=== PATIENT | female | born 1950 | race Caucasian/White ===

== ENCOUNTER 2018-03-15 18:58 | Inpatient (IN) | payer OTHER ==
[2018-03-15 21:14] LABS: MODE ROOM AIR; MetHgb Venous 0.5 %; Sample Type Blood venous; Site VENOUS LINE; Venous COHb 0.5 %; Venous Fraction OxyHgb 35.2 %; Venous Oxygen Sat 35.6 mmHG (55.0-75.0); Venous Total Hemglobin 13.1 g/dl
[2018-03-15 21:16] LABS: ADD MAN DIFF? NO
[2018-03-15 21:20] LABS: BASOPHILS % 0.6 % (0.0-2.0); EOSINOPHILS % 0.6 % (0.0-7.0); HEMATOCRIT 38.6 % (37.0-47.0); HEMOGLOBIN 11.9 g/dl (12.0-16.0); LYMPHOCYTES # 0.6 10^3/ul (0.8-2.9); LYMPHOCYTES % 11.9 % (15.0-51.0); MEAN CORPUSCULAR HEMOGLOBIN 27.8 pg (29.0-33.0); MEAN CORPUSCULAR HGB CONC 30.8 g/dl (32.0-37.0); MEAN CORPUSCULAR VOLUME 90.2 fl (82.0-101.0); MONOCYTE # 0.6 10^3/ul (0.3-0.9); MONOCYTES % 12.1 % (0.0-11.0); NEUTROPHIL # 3.9 10^3/ul (1.6-7.5); NEUTROPHILS % 74.2 % (39.0-77.0); PLATELET COUNT 279 10^3/UL (140-415); RED BLOOD COUNT 4.28 10^6/ul (4.20-5.40); RED CELL DISTRIBUTION WIDTH 12.8 % (11.5-14.5)
[2018-03-15 21:20] LABS: WHITE BLOOD COUNT 5.2 10^3/ul (4.8-10.8)
[2018-03-15 21:36] LABS: ANION GAP 9 (5-13); BLOOD UREA NITROGEN 24 mg/dl (7-20); CALCIUM 9.2 mg/dl (8.4-10.2); CARBON DIOXIDE 26 mmol/L (21-31); CHLORIDE 101 mmol/L (97-110); CHOLESTEROL 167 mg/dl (100-200); CREATININE 1.65 mg/dl (0.44-1.00); Estimated GFR 31 mL/min (>60); GLUCOSE 282 mg/dl (70-220); HDL CHOLESTEROL 54 mg/dl (35-98); LDL CHOLESTEROL,CALCULATED 80 mg/dl; POTASSIUM 4.1 mmol/L (3.5-5.1); SODIUM 136 mmol/L (135-144); TRIGLYCERIDES 167 mg/dl (0-149)
[2018-03-15 21:37] LABS: HEMOGLOBIN A1C 9.3 % (0-5.9)
[2018-03-15 21:39] LABS: INR 0.95; PROTIME 12.8 Sec (11.9-14.9)
[2018-03-15 21:40] LABS: PARTIAL THROMBOPLASTIN TIME 30.4 Sec (23.0-35.0)
[2018-03-15 21:49] LABS: TROPONIN-I 0.064 ng/ml (0.000-0.120)
[2018-03-15] MEDS ORDERED: ONDANSETRON 4 MG INJ IV ×2 (22:00→22:30)
[2018-03-15] MEDS ORDERED: ACETAMINOPHEN 325 MG TAB PO ×2 (22:00→22:30)
[2018-03-15] MEDS ORDERED: BISACODYL (EC) 5 MG TAB PO (22:30)
[2018-03-15] MEDS ORDERED: NACL 0.9% 3 ML SYG IV (22:30)
[2018-03-15] MEDS ORDERED: DOCUSATE SODIUM 100 MG CAP PO (22:30)
[2018-03-15] MEDS: ASPIRIN 81 MG TAB PO (22:35)
[2018-03-15] MEDS ORDERED: hydrALAzine 20 MG INJ IV (23:30)
[2018-03-15] MEDS: hydrALAzine 20 MG INJ IV (23:35)
[2018-03-16] MEDS: INSULIN GLARGINE [LANtus] 3 ML PEN SC ×2 (01:53→21:11)
[2018-03-16] MEDS ORDERED: DEXTROSE 50% 50 ML SYRINGE IV ×2 (03:30)
[2018-03-16] MEDS ORDERED: GLUCOSE GEL 15 GRAM TUBE PO ×2 (03:30)
[2018-03-16] MEDS ORDERED: GLUCOSE GEL 15 GRAM TUBE BUCCAL (03:30)
[2018-03-16] MEDS ORDERED: GLUCAGON 1 MG INJ IM (03:30)
[2018-03-16] MEDS: ALBUTEROL/IPRATROPIUM (NEB) 3 ML AMP HHN ×3 (04:42→13:00)
[2018-03-16] MEDS: PANTOPRAZOLE (EC) 40 MG TAB PO (05:13)
[2018-03-16 06:17] LABS: ADD MAN DIFF? NO
[2018-03-16 06:20] LABS: BASOPHILS % 0.4 % (0.0-2.0); EOSINOPHILS % 0.6 % (0.0-7.0); HEMATOCRIT 35.6 % (37.0-47.0); HEMOGLOBIN 11.2 g/dl (12.0-16.0); LYMPHOCYTES # 1.2 10^3/ul (0.8-2.9); LYMPHOCYTES % 24.9 % (15.0-51.0); MEAN CORPUSCULAR HEMOGLOBIN 28.4 pg (29.0-33.0); MEAN CORPUSCULAR HGB CONC 31.5 g/dl (32.0-37.0); MEAN CORPUSCULAR VOLUME 90.1 fl (82.0-101.0); MEAN PLATELET VOLUME 9.7 fl (7.4-10.4); MONOCYTE # 0.8 10^3/ul (0.3-0.9); MONOCYTES % 15.6 % (0.0-11.0); NEUTROPHIL # 2.9 10^3/ul (1.6-7.5); NEUTROPHILS % 58.1 % (39.0-77.0); PLATELET COUNT 281 10^3/UL (140-415); RED BLOOD COUNT 3.95 10^6/ul (4.20-5.40); RED CELL DISTRIBUTION WIDTH 12.8 % (11.5-14.5)
[2018-03-16 06:20] LABS: WHITE BLOOD COUNT 4.9 10^3/ul (4.8-10.8)
[2018-03-16 06:41] LABS: ALANINE AMINOTRANSFERASE 24 IU/L (13-69); ALBUMIN 3.2 g/dl (3.3-4.9); ALBUMIN/GLOBULIN RATIO 1.03; ALKALINE PHOSPHATASE 92 IU/L (42-121); ANION GAP 6 (5-13); ASPARTATE AMINO TRANSFERASE 30 IU/L (15-46); BLOOD UREA NITROGEN 27 mg/dl (7-20); CALCIUM 8.8 mg/dl (8.4-10.2); CARBON DIOXIDE 26 mmol/L (21-31); CHLORIDE 105 mmol/L (97-110); CHOL/HDL RATIO 2.8 RATIO; CHOLESTEROL 153 mg/dl (100-200); CREATININE 1.72 mg/dl (0.44-1.00); Estimated GFR 30 mL/min (>60); GLUCOSE 235 mg/dl (70-220); HDL CHOLESTEROL 53 mg/dl (35-98); LDL CHOLESTEROL,CALCULATED 62 mg/dl; POTASSIUM 4.3 mmol/L (3.5-5.1); SODIUM 137 mmol/L (135-144); TOTAL PROTEIN 6.3 g/dl (6.1-8.1); TRIGLYCERIDES 190 mg/dl (0-149)
[2018-03-16 06:47] LABS: B-TYPE NATRIURETIC PEPTIDE 6700 PG/ML (0-125)
[2018-03-16] MEDS: ASPIRIN (EC) 81 MG TAB PO (08:48)
[2018-03-16] MEDS: FUROSEMIDE 40 MG INJ IV ×2 (08:48→17:03)
[2018-03-16] MEDS: ESCITALOPRAM 10 MG TAB PO (08:48)
[2018-03-16] MEDS ORDERED: NON-FORMULARY/PATIENT OWN MED (Omeprazole* 20 MG) PO (09:00)
[2018-03-16] MEDS: INSULIN ASPART [NOVOLOG] 3 ML PEN SC ×4 (09:25→21:11)
[2018-03-16 09:58] LABS: HEMOGLOBIN A1C 9.3 % (0-5.9)
[2018-03-16 11:04] LABS: ALBUMIN 3.3 g/dl (3.3-4.9); ANION GAP 8 (5-13); BLOOD UREA NITROGEN 30 mg/dl (7-20); CALCIUM 8.5 mg/dl (8.4-10.2); CARBON DIOXIDE 23 mmol/L (21-31); CHLORIDE 104 mmol/L (97-110); CREATININE 1.92 mg/dl (0.44-1.00); GLUCOSE 285 mg/dl (70-220); PHOSPHORUS 4.1 mg/dl (2.5-4.9); POTASSIUM 4.6 mmol/L (3.5-5.1); SODIUM 135 mmol/L (135-144)
[2018-03-16] MEDS: NYSTATIN 15 GM OINT TOP ×2 (11:33→20:42)
[2018-03-16 18:21] LABS: ADD UMIC YES; UR ASCORBIC ACID NEGATIVE (NEGATIVE); UR BACTERIA MODERATE /HPF (NONE SEEN); UR BILIRUBIN (Dip) NEGATIVE (NEGATIVE); UR BLOOD (Dip) 2+ mg/dL (NEGATIVE); UR CLARITY CLEAR (CLEAR); UR COLOR YELLOW (YELLOW); UR GLUCOSE (Dip) 1+ mg/dL (NEGATIVE); UR KETONES (Dip) NEGATIVE (NEGATIVE); UR LEUKOCYTE ESTERASE (Dip) 2+ Leu/ul (NEGATIVE); UR NITRITE (Dip) POSITIVE (NEGATIVE); UR RBC 20 /HPF (0-5); UR SPECIFIC GRAVITY (Dip) 1.011 (1.003-1.030); UR TOTAL PROTEIN (Dip) 3+ mg/dl (NEGATIVE); UR UROBILINOGEN (Dip) NEGATIVE (NEGATIVE); UR WBC 94 /HPF (0-5)
[2018-03-16 18:43] LABS: AMPHETAMINE/METHAMPHETAMINE Negative (NEGATIVE); BARBITURATES Negative (NEGATIVE); BENZODIAZEPINES Negative (NEGATIVE); CANNABINOIDS Negative (NEGATIVE); COCAINE Negative (NEGATIVE); OPIATES Negative (NEGATIVE)
[2018-03-16 19:05] LABS: SODIUM,URINE RANDOM 81 mmol/L (30-90)
[2018-03-16 19:05] LABS: CREATININE,URINE RANDOM 72.95 mg/dl (20-320)
[2018-03-16] MEDS: ATORVASTATIN 80 MG TAB PO (20:42)
[2018-03-17] MEDS: ACCU-CHEK XX (01:20)
[2018-03-17] MEDS: PANTOPRAZOLE (EC) 40 MG TAB PO (05:03)
[2018-03-17] MEDS: FUROSEMIDE 40 MG INJ IV ×2 (05:03→17:14)
[2018-03-17 05:21] LABS: ADD MAN DIFF? NO
[2018-03-17 05:26] LABS: BASOPHILS % 0.3 % (0.0-2.0); EOSINOPHILS # 0.1 10^3/ul (0.0-0.5); HEMATOCRIT 35.6 % (37.0-47.0); HEMOGLOBIN 11.1 g/dl (12.0-16.0); LYMPHOCYTES # 1.4 10^3/ul (0.8-2.9); LYMPHOCYTES % 21.4 % (15.0-51.0); MEAN CORPUSCULAR HEMOGLOBIN 28.4 pg (29.0-33.0); MEAN CORPUSCULAR HGB CONC 31.2 g/dl (32.0-37.0); MEAN PLATELET VOLUME 9.4 fl (7.4-10.4); MONOCYTE # 0.8 10^3/ul (0.3-0.9); MONOCYTES % 12.6 % (0.0-11.0); NEUTROPHIL # 4.3 10^3/ul (1.6-7.5); NEUTROPHILS % 64.3 % (39.0-77.0); PLATELET COUNT 286 10^3/UL (140-415); RED BLOOD COUNT 3.91 10^6/ul (4.20-5.40)
[2018-03-17 05:26] LABS: WHITE BLOOD COUNT 6.7 10^3/ul (4.8-10.8)
[2018-03-17 06:03] LABS: ALBUMIN 3.1 g/dl (3.3-4.9); ANION GAP 8 (5-13); BLOOD UREA NITROGEN 40 mg/dl (7-20); CALCIUM 8.6 mg/dl (8.4-10.2); CARBON DIOXIDE 25 mmol/L (21-31); CHLORIDE 106 mmol/L (97-110); CREATININE 1.99 mg/dl (0.44-1.00); GLUCOSE 65 mg/dl (70-220); MAGNESIUM 2.1 mg/dl (1.7-2.5); PHOSPHORUS 4.4 mg/dl (2.5-4.9); POTASSIUM 3.6 mmol/L (3.5-5.1); SODIUM 139 mmol/L (135-144)
[2018-03-17] MEDS: INSULIN ASPART [NOVOLOG] 3 ML PEN SC ×4 (07:20→20:22)
[2018-03-17 07:59] LABS: ERYTHROCYTE SEDIMENTATION RATE 88 mm/Hr (0-30)
[2018-03-17] MEDS: NYSTATIN 15 GM OINT TOP ×2 (08:34→20:16)
[2018-03-17] MEDS: ASPIRIN (EC) 81 MG TAB PO (08:34)
[2018-03-17] MEDS: ESCITALOPRAM 10 MG TAB PO (08:34)
[2018-03-17] MEDS: CEFTRIAXONE 1 GM/50 ML (PMX) 50 ML IVPB (09:32)
[2018-03-17] MEDS: METOPROLOL 100 MG TAB PO ×2 (09:39→20:15)
[2018-03-17 19:49] LABS: RAPID PLASMA REAGIN NONREACTIVE (NR)
[2018-03-17] MEDS: ATORVASTATIN 80 MG TAB PO (20:15)
[2018-03-17] MEDS: INSULIN GLARGINE [LANTus] (100 UNITS/ML) SYG SC (21:34)
[2018-03-17] MEDS: HYDROCODONE/APAP (5/325) TAB PO (23:30)
[2018-03-18] MEDS: ACCU-CHEK XX (02:39)
[2018-03-18] MEDS: PANTOPRAZOLE (EC) 40 MG TAB PO (05:32)
[2018-03-18] MEDS: FUROSEMIDE 40 MG INJ IV ×2 (05:33→09:02)
[2018-03-18 06:00] LABS: ADD MAN DIFF? NO
[2018-03-18 06:09] LABS: WHITE BLOOD COUNT 6.5 10^3/ul (4.8-10.8)
[2018-03-18 06:09] LABS: BASOPHILS % 0.5 % (0.0-2.0); EOSINOPHILS # 0.1 10^3/ul (0.0-0.5); EOSINOPHILS % 1.5 % (0.0-7.0); HEMATOCRIT 35.5 % (37.0-47.0); LYMPHOCYTES # 2.1 10^3/ul (0.8-2.9); LYMPHOCYTES % 31.6 % (15.0-51.0); MEAN CORPUSCULAR HEMOGLOBIN 28.4 pg (29.0-33.0); MEAN CORPUSCULAR VOLUME 91.7 fl (82.0-101.0); MEAN PLATELET VOLUME 9.9 fl (7.4-10.4); MONOCYTE # 0.8 10^3/ul (0.3-0.9); MONOCYTES % 11.6 % (0.0-11.0); NEUTROPHIL # 3.5 10^3/ul (1.6-7.5); NEUTROPHILS % 54.3 % (39.0-77.0); PLATELET COUNT 261 10^3/UL (140-415); RED BLOOD COUNT 3.87 10^6/ul (4.20-5.40)
[2018-03-18 06:59] LABS: ALBUMIN 3.1 g/dl (3.3-4.9); ANION GAP 10 (5-13); BLOOD UREA NITROGEN 54 mg/dl (7-20); CALCIUM 8.3 mg/dl (8.4-10.2); CARBON DIOXIDE 25 mmol/L (21-31); CHLORIDE 104 mmol/L (97-110); CREATININE 2.08 mg/dl (0.44-1.00); GLUCOSE 221 mg/dl (70-220); MAGNESIUM 2.1 mg/dl (1.7-2.5); PHOSPHORUS 5.3 mg/dl (2.5-4.9); POTASSIUM 4.1 mmol/L (3.5-5.1); SODIUM 139 mmol/L (135-144)
[2018-03-18] MEDS: INSULIN ASPART [NOVOLOG] 3 ML PEN SC ×6 (08:04→20:34)
[2018-03-18] MEDS: CEFTRIAXONE 1 GM/50 ML (PMX) 50 ML IVPB (08:57)
[2018-03-18] MEDS: ASPIRIN (EC) 81 MG TAB PO (08:59)
[2018-03-18] MEDS: ESCITALOPRAM 10 MG TAB PO (08:59)
[2018-03-18] MEDS: METOPROLOL 100 MG TAB PO (09:01)
[2018-03-18] MEDS: NYSTATIN 15 GM OINT TOP ×2 (09:02→20:36)
[2018-03-18] MEDS: LINAGLIPTIN 5 MG TABLET PO (09:58)
[2018-03-18] MEDS: HYDROCODONE/APAP (5/325) TAB PO (10:00)
[2018-03-18] MEDS: NIFEdipine (XL) 30 MG TAB PO (11:50)
[2018-03-18 17:51] LABS: CREATININE, RANDOM URINE 71 mg/dL (20-275); MICROALBUMIN 211.7 mg/dL; MICROALBUMIN/CREATININE RATIO 2982 (<30)
[2018-03-18] MEDS: ATORVASTATIN 80 MG TAB PO (20:29)
[2018-03-18] MEDS: METOPROLOL 50 MG TAB PO (20:30)
[2018-03-18] MEDS: INSULIN GLARGINE [LANTus] (100 UNITS/ML) SYG SC (20:34)
[2018-03-19] MEDS: ACCU-CHEK XX (02:00)
[2018-03-19] MEDS: PANTOPRAZOLE (EC) 40 MG TAB PO (05:14)
[2018-03-19 06:00] LABS: HEMATOCRIT 35.9 % (37.0-47.0); HEMOGLOBIN 11.2 g/dl (12.0-16.0); MEAN CORPUSCULAR HEMOGLOBIN 28.4 pg (29.0-33.0); MEAN CORPUSCULAR HGB CONC 31.2 g/dl (32.0-37.0); MEAN CORPUSCULAR VOLUME 91.1 fl (82.0-101.0); MEAN PLATELET VOLUME 9.8 fl (7.4-10.4); PLATELET COUNT 273 10^3/UL (140-415); RED BLOOD COUNT 3.94 10^6/ul (4.20-5.40); RED CELL DISTRIBUTION WIDTH 12.9 % (11.5-14.5)
[2018-03-19 06:00] LABS: WHITE BLOOD COUNT 7.8 10^3/ul (4.8-10.8)
[2018-03-19 06:38] LABS: ADD MAN DIFF? YES; POSITIVE DIFF @See below
[2018-03-19 06:45] LABS: ANION GAP 1 (5-13); BLOOD UREA NITROGEN 50 mg/dl (7-20); CALCIUM 8.5 mg/dl (8.4-10.2); CARBON DIOXIDE 30 mmol/L (21-31); CHLORIDE 107 mmol/L (97-110); CREATININE 1.94 mg/dl (0.44-1.00); GLUCOSE 123 mg/dl (70-220); MAGNESIUM 2.1 mg/dl (1.7-2.5); PHOSPHORUS 4.2 mg/dl (2.5-4.9); POTASSIUM 4.6 mmol/L (3.5-5.1); SODIUM 138 mmol/L (135-144)
[2018-03-19 07:40] LABS: ANISOCYTOSIS 2+ (0-0); BAND NEUTROPHILS #M 0.5 10^3/ul (0.0-0.6); BAND NEUTROPHILS % (M) 7 % (0-4); BASOPHILS % (M) 1 % (0-2); EOSINOPHILS % (M) 5 % (0-7); LYMPHOCYTES #M 1.5 10^3/ul (0.8-2.9); LYMPHOCYTES % (M) 20 % (15-51); MICROCYTOSIS 2+ (0-0); MONOCYTE #M 0.7 10^3/ul (0.3-0.9); MONOCYTES % (M) 9 % (0-11); PLATELET ESTIMATE NORMAL; POLYCHROMASIA 3+ (0-0); REACTIVE LYMPHOCYTES% (M) 13 % (0-0); SEG NEUT #M 3.5 10^3/ul (1.6-7.5); SEGMENTED NEUTROPHILS (M) % 45 % (39-77); SMUDGE%M 3 % (0-0)
[2018-03-19] MEDS: INSULIN ASPART [NOVOLOG] 3 ML PEN SC ×7 (07:47→20:55)
[2018-03-19] MEDS: CEFTRIAXONE 1 GM/50 ML (PMX) 50 ML IVPB (08:01)
[2018-03-19] MEDS: ESCITALOPRAM 10 MG TAB PO (08:04)
[2018-03-19] MEDS: METOPROLOL 50 MG TAB PO ×2 (08:05→20:38)
[2018-03-19] MEDS: NIFEdipine (XL) 30 MG TAB PO (08:05)
[2018-03-19] MEDS: ASPIRIN (EC) 81 MG TAB PO (08:05)
[2018-03-19] MEDS: NYSTATIN 15 GM OINT TOP ×2 (08:06→20:41)
[2018-03-19] MEDS: LINAGLIPTIN 5 MG TABLET PO (08:06)
[2018-03-19] MEDS: INSULIN GLARGINE [LANTus] (100 UNITS/ML) SYG SC ×2 (08:08→20:55)
[2018-03-19] MEDS: FUROSEMIDE 20 MG TAB PO (08:14)
[2018-03-19] MEDS: ATORVASTATIN 80 MG TAB PO (20:38)
[2018-03-20] MEDS: ACCU-CHEK XX (01:34)
[2018-03-20 05:21] LABS: ADD MAN DIFF? NO
[2018-03-20] MEDS: PANTOPRAZOLE (EC) 40 MG TAB PO (05:28)
[2018-03-20 05:33] LABS: WHITE BLOOD COUNT 7.7 10^3/ul (4.8-10.8)
[2018-03-20 05:33] LABS: BASOPHILS % 0.4 % (0.0-2.0); EOSINOPHILS # 0.2 10^3/ul (0.0-0.5); EOSINOPHILS % 2.6 % (0.0-7.0); HEMATOCRIT 35.5 % (37.0-47.0); LYMPHOCYTES # 2.6 10^3/ul (0.8-2.9); LYMPHOCYTES % 34.2 % (15.0-51.0); MEAN CORPUSCULAR HEMOGLOBIN 28.1 pg (29.0-33.0); MEAN CORPUSCULAR VOLUME 90.6 fl (82.0-101.0); MEAN PLATELET VOLUME 9.8 fl (7.4-10.4); MONOCYTE # 0.7 10^3/ul (0.3-0.9); MONOCYTES % 9.6 % (0.0-11.0); NEUTROPHIL # 4.1 10^3/ul (1.6-7.5); NEUTROPHILS % 52.7 % (39.0-77.0); PLATELET COUNT 292 10^3/UL (140-415); RED BLOOD COUNT 3.92 10^6/ul (4.20-5.40); RED CELL DISTRIBUTION WIDTH 13.1 % (11.5-14.5)
[2018-03-20 05:46] LABS: ANION GAP 8 (5-13); BLOOD UREA NITROGEN 51 mg/dl (7-20); CALCIUM 8.5 mg/dl (8.4-10.2); CARBON DIOXIDE 27 mmol/L (21-31); CHLORIDE 105 mmol/L (97-110); CREATININE 1.82 mg/dl (0.44-1.00); GLUCOSE 161 mg/dl (70-220); MAGNESIUM 2.3 mg/dl (1.7-2.5); POTASSIUM 4.5 mmol/L (3.5-5.1); SODIUM 140 mmol/L (135-144)
[2018-03-20] MEDS: INSULIN ASPART [NOVOLOG] 3 ML PEN SC ×6 (07:50→17:55)
[2018-03-20] MEDS: ESCITALOPRAM 10 MG TAB PO (08:17)
[2018-03-20] MEDS: LINAGLIPTIN 5 MG TABLET PO (08:17)
[2018-03-20] MEDS: ASPIRIN (EC) 81 MG TAB PO (08:17)
[2018-03-20] MEDS: FUROSEMIDE 20 MG TAB PO (08:18)
[2018-03-20] MEDS: METOPROLOL 50 MG TAB PO (08:20)
[2018-03-20] MEDS: CEFTRIAXONE 1 GM/50 ML (PMX) 50 ML IVPB (08:21)
[2018-03-20] MEDS: INSULIN GLARGINE [LANTus] (100 UNITS/ML) SYG SC (08:29)
[2018-03-20] MEDS: NIFEdipine (XL) 30 MG TAB PO (12:09)
[2018-03-20] MEDS: NYSTATIN 15 GM OINT TOP (17:52)
== END 2018-03-20 19:30 | disposition home or self-care (01) | DRG 70 ==
LOC: 6WM 22:01 → E/R 18:58 → MS1 03-19 23:47
PROVIDERS: Family Medicine
DX: I67.83 Posterior reversible encephalopathy syndrome (principal); I50.31 Acute diastolic (congestive) heart failure; G45.3 Amaurosis fugax; I16.9 Hypertensive crisis, unspecified; Z68.43 Body mass index [BMI] 50.0-59.9, adult; N17.9 Acute kidney failure, unspecified; I13.0 Hypertensive heart and chronic kidney disease with heart failure and stage 1 through stage 4 chronic kidney disease, or unspecified chronic kidney disease; E66.01 Morbid (severe) obesity due to excess calories; Z71.3 Dietary counseling and surveillance; N18.9 Chronic kidney disease, unspecified
CPT/HCPCS: 36415; 70450; 70544; 71045; 76775; 80048; 80053; 80061; 80069; 80307; 81001; 81003; 82043; 82803; 82962; 83036; 83735; 83880; 84155; 84300; 84443; 84484; 85025; 85610; 85651; 85730; 86592; 87086; 92610; 93005; 93306; 93880; 93970; 94640; 94664; 97110; 97116; 97162; 97167; 97530; 97535; 99285-25

== ENCOUNTER 2018-10-15 18:53 | Emergency (ER) | payer OTHER ==
[2018-10-15 21:43] LABS: URINE BLOOD (Dip) POC Trace-lysed (NEGATIVE); URINE KETONES (Dip) POC Trace (NEGATIVE); URINE LEUKOCYTE EST (Dip) POC Trace (NEGATIVE); URINE NITRITE (Dip) POC Negative (NEGATIVE); URINE TOTAL PROTEIN POC 3+ (NEGATIVE)
[2018-10-15] MEDS ORDERED: SOD CHLORIDE 0.9% 1,000 ML IV (22:30)
[2018-10-15 22:55] LABS: ADD MAN DIFF? NO
[2018-10-15 23:03] LABS: BASOPHIL # 0.1 10^3/ul (0.0-0.1); BASOPHILS % 0.6 % (0.0-2.0); EOSINOPHILS # 0.2 10^3/ul (0.0-0.5); EOSINOPHILS % 1.6 % (0.0-7.0); HEMATOCRIT 45.5 % (37.0-47.0); HEMOGLOBIN 14.3 g/dl (12.0-16.0); LYMPHOCYTES % 18.3 % (15.0-51.0); MEAN CORPUSCULAR HEMOGLOBIN 28.5 pg (29.0-33.0); MEAN CORPUSCULAR HGB CONC 31.4 g/dl (32.0-37.0); MEAN CORPUSCULAR VOLUME 90.6 fl (82.0-101.0); MEAN PLATELET VOLUME 10.2 fl (7.4-10.4); MONOCYTE # 0.7 10^3/ul (0.3-0.9); MONOCYTES % 6.1 % (0.0-11.0); NEUTROPHILS % 72.6 % (39.0-77.0); PLATELET COUNT 345 10^3/UL (140-415); RED BLOOD COUNT 5.02 10^6/ul (4.20-5.40); RED CELL DISTRIBUTION WIDTH 13.2 % (11.5-14.5)
[2018-10-15 23:20] LABS: ANION GAP 12 (5-13); BLOOD UREA NITROGEN 31 mg/dl (7-20); CALCIUM 9.5 mg/dl (8.4-10.2); CARBON DIOXIDE 19 mmol/L (21-31); CHLORIDE 102 mmol/L (97-110); CREATININE 1.98 mg/dl (0.44-1.00); Estimated GFR 25 mL/min (>60); GLUCOSE 337 mg/dl (70-220); MAGNESIUM 2.1 mg/dl (1.7-2.5); PHOSPHORUS 3.8 mg/dl (2.5-4.9); SODIUM 133 mmol/L (135-144)
[2018-10-16] MEDS ORDERED: ACCU-CHEK XX
[2018-10-16] MEDS: INSULIN LISPRO 100 UNIT/ML VIAL SC (00:08)
== END 2018-10-16 00:40 | disposition home or self-care (01) ==
LOC: E/R 10-16 00:40
DX: E11.65 Type 2 diabetes mellitus with hyperglycemia (principal); I10 Essential (primary) hypertension; Z79.4 Long term (current) use of insulin; Z79.82 Long term (current) use of aspirin
CPT/HCPCS: 36415; 70450; 80048; 81003; 82962; 83735; 84100; 85025; 93005; 96372; 99285-25